=== PATIENT | female | born 2000 | race Caucasian/White ===

== ENCOUNTER 2020-02-08 19:12 | Emergency (ER) | payer OTHER ==
[~2020-02-08] VITALS: Ht 160 cm; Wt 56.7 kg
[~2020-02-08 19:12] MED LIST: ACET325 PO; ALBU90OI INH; AMOX50SU PO; BENADRYL25 MG PO; CODGUAEL PO; IBUP800 PO; Macrobid 100 M100 MG PO; Pepcid40 MG PO; Roxicodone5 MG PO
[2020-02-08] MEDS ORDERED: PRED20 PO (21:34)
== END 2020-02-08 21:56 | disposition home or self-care (01) ==
LOC: ER 19:12
DX: L24.3 Irritant contact dermatitis due to cosmetics (principal); T49.8X1A Poisoning by other topical agents, accidental (unintentional), initial encounter
CPT/HCPCS: 99283; J1100

== ENCOUNTER 2021-07-19 09:53 | Emergency (ER) | payer OTHER ==
[~2021-07-19] VITALS: Ht 162.6 cm; Wt 65.8 kg
[~2021-07-19 09:53] MED LIST changes: +PRED20 PO
[2021-07-19 10:26] LABS: Source, Urine Clean Catch
[2021-07-19 10:29] LABS: Appearance, Urine Clear (Clear); Bilirubin, Urine Neg (Neg); Blood, Urine 3+ (Neg); Color, Urine Yellow (P-Yellow); Glucose Qualitative, Urine Neg (Neg); Ketones, Urine Neg (Neg); Leukocyte Esterase, Urine 2+ (Neg); Nitrite, Urine Neg (Neg); Protein, Urine 1+ (Neg); Specific Gravity, Urine 1.015 (1.003-1.022); Urobilinogen, Urine NORM (Normal)
[2021-07-19] MEDS ORDERED: HYDHCL25 PO (10:47)
[2021-07-19 10:53] LABS: BASOPHILS ABSOLUTE AUTO 0.02 K/mm3 (0.00-0.23); BASOPHILS PERCENT AUTO 0 % (0-2); EOSINOPHILS ABSOLUTE AUTO 0.03 K/mm3 (0.00-0.68); EOSINOPHILS PERCENT AUTO 0 % (0-6); Hematocrit 33.8 % (33.0-51.0); Hemoglobin 11.7 g/dL (11.5-16.0); IMMATURE GRAN ABSOLUTE AUTO 0.01 K/mm3 (0.00-0.10); IMMATURE GRAN PERCENT AUTO 0 % (0-1); LYMPHOCYTES ABSOLUTE AUTO 0.78 K/mm3 (0.84-5.20); LYMPHOCYTES PERCENT AUTO 9 % (21-46); MONOCYTES ABSOLUTE AUTO 1.43 K/mm3 (0.16-1.47); MONOCYTES PERCENT AUTO 17 % (4-13); Mean Corpuscular HGB 30.7 pg (26.0-34.0); Mean Corpuscular HGB Conc 34.6 g/dL (31.5-36.5); Mean Corpuscular Volume 89 fL (80-100); Mean Platelet Volume 10.1 fL (9.1-12.4); NEUTROPHILS ABSOLUTE AUTO 6.19 K/mm3 (1.96-9.15); NEUTROPHILS PERCENT AUTO 73 % (41-73); Platelet Count 219 K/mm3 (150-400); RDW Coefficient Variation 12.1 % (11.7-14.2); RDW Standard Deviation 38.9 fL (35.1-46.3); Red Blood Cell Count 3.81 M/mm3 (3.80-5.20); White Blood Cell Count 8.46 K/mm3 (4.00-11.30)
[2021-07-19 11:11] LABS: Anion Gap 5 mmol/L (6-16); Blood Urea Nitrogen 11 mg/dL (8-24); Bun/Creatinine Ratio 18.9 (12.0-20.0); CO2, Blood 26 mmol/L (21-32); Calcium, Blood 8.6 mg/dL (8.5-10.1); Chloride, Blood 109 mmol/L (98-108); Creatinine, Blood 0.58 mg/dL (0.40-1.00); Glomerular Filtration Rate >60 (60-); Glucose, Blood 114 mg/dL (70-99); Potassium, Blood 3.6 mmol/L (3.5-5.5); Sodium, Blood 140 mmol/L (136-145)
[2021-07-19 11:28] LABS: Bacteria Many /hpf; Squamous Epithelial Cells Mod /hpf (Few)
[2021-07-19 11:29] LABS: Amorphous Light (0-Heavy); Mucus Mod (0-Heavy)
[2021-07-19] MEDS ORDERED: CEFD300 PO (12:32)
== END 2021-07-19 12:47 | disposition home or self-care (01) ==
LOC: ER 09:53
PROVIDERS: Emergency Medicine
DX: N39.0 Urinary tract infection, site not specified (principal); F17.200 Nicotine dependence, unspecified, uncomplicated; Z91.013 Allergy to seafood
CPT/HCPCS: 36415; 80048; 81001; 81025; 85025; 87077; 87086; 87186; 96374; 96375; 99284-25; A9270; J1885; J2405

== ENCOUNTER 2021-09-08 11:05 | Emergency (ER) | payer OTHER ==
[~2021-09-08] VITALS: Ht 162.6 cm; Wt 65.8 kg
[~2021-09-08 11:05] MED LIST changes: +CEFD300 PO; +HYDHCL25 PO
[2021-09-08 12:29] LABS: Source, Urine Clean Catch
[2021-09-08 12:45] LABS: Appearance, Urine Clear (Clear); Bilirubin, Urine Neg (Neg); Blood, Urine 5+ (Neg); Color, Urine Yellow (P-Yellow); Glucose Qualitative, Urine Neg (Neg); Ketones, Urine Neg (Neg); Leukocyte Esterase, Urine 1+ (Neg); Nitrite, Urine Neg (Neg); Protein, Urine 1+ (Neg); Specific Gravity, Urine 1.015 (1.003-1.022); Urobilinogen, Urine NORM (Normal)
[2021-09-08 13:02] LABS: Amorphous Light (0-Heavy); Bacteria Mod /hpf; Squamous Epithelial Cells Mod /hpf (Few)
[2021-09-08 13:14] LABS: BASOPHILS ABSOLUTE AUTO 0.04 K/mm3 (0.00-0.23); BASOPHILS PERCENT AUTO 1 % (0-2); EOSINOPHILS ABSOLUTE AUTO 0.08 K/mm3 (0.00-0.68); EOSINOPHILS PERCENT AUTO 1 % (0-6); Hematocrit 38.7 % (33.0-51.0); IMMATURE GRAN ABSOLUTE AUTO 0.02 K/mm3 (0.00-0.10); IMMATURE GRAN PERCENT AUTO 0 % (0-1); LYMPHOCYTES ABSOLUTE AUTO 1.83 K/mm3 (0.84-5.20); LYMPHOCYTES PERCENT AUTO 25 % (21-46); MONOCYTES ABSOLUTE AUTO 0.76 K/mm3 (0.16-1.47); MONOCYTES PERCENT AUTO 10 % (4-13); Mean Corpuscular HGB 30.4 pg (26.0-34.0); Mean Corpuscular HGB Conc 33.6 g/dL (31.5-36.5); Mean Corpuscular Volume 91 fL (80-100); Mean Platelet Volume 10.1 fL (9.1-12.4); NEUTROPHILS ABSOLUTE AUTO 4.56 K/mm3 (1.96-9.15); NEUTROPHILS PERCENT AUTO 63 % (41-73); Platelet Count 316 K/mm3 (150-400); RDW Coefficient Variation 13.2 % (11.7-14.2); RDW Standard Deviation 43.8 fL (35.1-46.3); Red Blood Cell Count 4.27 M/mm3 (3.80-5.20); White Blood Cell Count 7.29 K/mm3 (4.00-11.30)
[2021-09-08] MEDS ORDERED: CEPH500 PO (13:38)
[2021-09-08 14:08] LABS: Alanine Aminotransfer (ALT/SGP 31 U/L (12-78); Albumin, Blood 3.8 g/dL (3.4-5.0); Albumin/Globulin Ratio 1.2 (0.8-1.8); Alk Phos 60 U/L (50-136); Anion Gap 6 mmol/L (6-16); Aspartate Aminotrans (AST/SGOT 22 U/L (12-37); Beta HCG, Quantitative, Serum 21710 mIU/mL (0-3); Bilirubin, Total 0.6 mg/dL (0.1-1.0); Blood Urea Nitrogen 9 mg/dL (8-24); Bun/Creatinine Ratio 15.6 (12.0-20.0); CO2, Blood 26 mmol/L (21-32); Calcium, Blood 9.1 mg/dL (8.5-10.1); Chloride, Blood 106 mmol/L (98-108); Creatinine, Blood 0.58 mg/dL (0.40-1.00); Globulin, Blood 3.3 g/dL (2.2-4.0); Glomerular Filtration Rate >60 (60-); Glucose, Blood 76 mg/dL (70-99); Potassium, Blood 4.2 mmol/L (3.5-5.5); Sodium, Blood 138 mmol/L (136-145); Total Protein, Blood 7.1 g/dL (6.4-8.2)
== END 2021-09-08 13:46 | disposition home or self-care (01) ==
LOC: ER 11:05
PROVIDERS: Physician Assistant
DX: O23.41 Unspecified infection of urinary tract in pregnancy, first trimester (principal); O20.9 Hemorrhage in early pregnancy, unspecified; N39.0 Urinary tract infection, site not specified; Z91.013 Allergy to seafood; Z79.899 Other long term (current) drug therapy; Z3A.01 Less than 8 weeks gestation of pregnancy
CPT/HCPCS: 76801; 76817; 80053; 81001; 84702; 85025; 86900; 86901; 87086; 99284-25

== ENCOUNTER 2022-05-08 00:15 | Inpatient (IN) | payer OTHER ==
[~2022-05-08] VITALS: Ht 165.1 cm; Wt 87.9 kg
[~2022-05-08 00:15] MED LIST changes: +CEPH500 PO
[2022-05-08] MEDS ORDERED: PRENATAL TABLE1 EAC2 PO (00:45)
[2022-05-08 01:16] LABS: BASOPHILS ABSOLUTE AUTO 0.02 K/mm3 (0.00-0.23); BASOPHILS PERCENT AUTO 0 % (0-2); EOSINOPHILS PERCENT AUTO 1 % (0-6); Hematocrit 31.6 % (33.0-51.0); Hemoglobin 10.7 g/dL (11.5-16.0); IMMATURE GRAN ABSOLUTE AUTO 0.03 K/mm3 (0.00-0.10); IMMATURE GRAN PERCENT AUTO 0 % (0-1); LYMPHOCYTES ABSOLUTE AUTO 2.09 K/mm3 (0.84-5.20); LYMPHOCYTES PERCENT AUTO 28 % (21-46); MONOCYTES ABSOLUTE AUTO 0.68 K/mm3 (0.16-1.47); MONOCYTES PERCENT AUTO 9 % (4-13); Mean Corpuscular HGB 28.8 pg (26.0-34.0); Mean Corpuscular HGB Conc 33.9 g/dL (31.5-36.5); Mean Corpuscular Volume 85 fL (80-100); NEUTROPHILS PERCENT AUTO 61 % (41-73); Platelet Count 262 K/mm3 (150-400); RDW Coefficient Variation 13.2 % (11.7-14.2); RDW Standard Deviation 40.8 fL (35.1-46.3); Red Blood Cell Count 3.71 M/mm3 (3.80-5.20); White Blood Cell Count 7.52 K/mm3 (4.00-11.30)
[2022-05-10 05:49] LABS: Hematocrit 27.1 % (33.0-51.0); Hemoglobin 9.1 g/dL (11.5-16.0); Mean Corpuscular HGB 29.2 pg (26.0-34.0); Mean Corpuscular HGB Conc 33.6 g/dL (31.5-36.5); Mean Corpuscular Volume 87 fL (80-100); Mean Platelet Volume 12.1 fL (9.1-12.4); Platelet Count 206 K/mm3 (150-400); RDW Coefficient Variation 13.5 % (11.7-14.2); RDW Standard Deviation 42.1 fL (35.1-46.3); Red Blood Cell Count 3.12 M/mm3 (3.80-5.20); White Blood Cell Count 10.05 K/mm3 (4.00-11.30)
--- NOTE | 2022-05-10 13:02 | NUR ---
1300- dcd to home with baby
== END 2022-05-10 12:59 | disposition home or self-care (01) | DRG 807 ==
LOC: OBS 00:15 → BC 00:37
PROVIDERS: ADMIT Advanced Practice Midwife
PROC: 10E0XZZ Delivery of Products of Conception, External Approach (ICD-10-PCS; principal; 2022-05-09)
PROC: 00HU33Z Insertion of Infusion Device into Spinal Canal, Percutaneous Approach (ICD-10-PCS; 2022-05-09)
PROC: 3E0R3BZ Introduction of Anesthetic Agent into Spinal Canal, Percutaneous Approach (ICD-10-PCS; 2022-05-09)
PROC: 0HQ9XZZ Repair Perineum Skin, External Approach (ICD-10-PCS; 2022-05-09)
DX: O48.0 Post-term pregnancy (principal); Z37.0 Single live birth; Z3A.40 40 weeks gestation of pregnancy; Z67.40 Type O blood, Rh positive; O99.03 Anemia complicating the puerperium; D64.89 Other specified anemias; E23.6 Other disorders of pituitary gland; O70.0 First degree perineal laceration during delivery; Z88.8 Allergy status to other drugs, medicaments and biological substances; Z91.013 Allergy to seafood; Z91.040 Latex allergy status
CPT/HCPCS: 36415; 51701; 51702; 59025; 85025; 85027; 86850; 86900; 86901; A9270; J0290; J1885; J2001; J2210; J2405; J2590; J3010; J7120

== ENCOUNTER → 2022-10-24 | Outpatient (CLI) | payer OTHER ==
[~2022-10-24] MED LIST changes: +PRENATAL TABLE1 EAC2 PO
== END | disposition home or self-care (01) ==
LOC: LAB SHORT 10:17
DX: J02.9 Acute pharyngitis, unspecified (principal)
CPT/HCPCS: 87081

== ENCOUNTER 2023-05-31 02:30 | Emergency (ER) | payer OTHER ==
[~2023-05-31] VITALS: Ht 162.6 cm; Wt 72.6 kg
[2023-05-31] MEDS ORDERED: MORP15ER PO (04:50)
[2023-05-31] MEDS ORDERED: ONDA4ODT MM (04:50)
[2023-05-31] MEDS ORDERED: METO10 PO (04:50)
[2023-05-31] MEDS ORDERED: AMOCLA875 PO (04:50)
[2023-05-31 04:55] VITALS: BP 113/71
== END 2023-05-31 05:00 | disposition home or self-care (01) ==
LOC: ER 02:30
DX: K03.81 Cracked tooth (principal); Z88.8 Allergy status to other drugs, medicaments and biological substances; Z91.040 Latex allergy status; Z91.013 Allergy to seafood
CPT/HCPCS: A9270

== ENCOUNTER → 2023-12-24 | Outpatient (CLI) | payer OTHER ==
[~2023-12-24] MED LIST changes: +AMOCLA875 PO; +METO10 PO; +MORP15ER PO; +ONDA4ODT MM
== END | disposition home or self-care (01) ==
LOC: LAB 15:57 → LAB SHORT 15:57
DX: R30.0 Dysuria (principal)
CPT/HCPCS: 87086

== ENCOUNTER 2025-06-18 13:25 | Emergency (ER) | payer OTHER ==
[~2025-06-18] VITALS: Ht 162.6 cm; Wt 68.0 kg
[2025-06-18 14:27] LABS: Source, Urine Clean Catch
[2025-06-18] MEDS ORDERED: LESSINA-28 TAB1 EACH PO (14:27)
[2025-06-18] MEDS ORDERED: ESCI10 PO (14:27)
[2025-06-18] MEDS ORDERED: HYDHCL25 PO (14:28)
[2025-06-18 14:45] LABS: Bilirubin, Urine Neg (Neg); Color, Urine Yellow (P-Yellow); Glucose Qualitative, Urine Neg (Neg); Ketones, Urine Neg (Neg); Leukocyte Esterase, Urine 1+ (Neg); Protein, Urine Neg (Neg); Specific Gravity, Urine 1.005 (1.003-1.022); Urobilinogen, Urine NORM (Normal)
[2025-06-18 14:50] LABS: BASOPHILS ABSOLUTE AUTO 0.04 K/mm3 (0.00-0.23); BASOPHILS PERCENT AUTO 1 % (0-2); EOSINOPHILS ABSOLUTE AUTO 0.12 K/mm3 (0.00-0.68); EOSINOPHILS PERCENT AUTO 2 % (0-6); Hematocrit 39.3 % (33.0-51.0); Hemoglobin 13.0 g/dL (11.5-16.0); IMMATURE GRAN ABSOLUTE AUTO 0.02 K/mm3 (0.00-0.10); IMMATURE GRAN PERCENT AUTO 0 % (0-1); LYMPHOCYTES ABSOLUTE AUTO 1.97 K/mm3 (0.84-5.20); LYMPHOCYTES PERCENT AUTO 26 % (21-46); MONOCYTES ABSOLUTE AUTO 0.45 K/mm3 (0.16-1.47); MONOCYTES PERCENT AUTO 6 % (4-13); Mean Corpuscular HGB Conc 33.1 g/dL (31.5-36.5); Mean Corpuscular Volume 93 fL (80-100); NEUTROPHILS ABSOLUTE AUTO 5.04 K/mm3 (1.96-9.15); NEUTROPHILS PERCENT AUTO 66 % (41-73); NRBC ABSOLUTE 0.00 K/mm3 (0.00-0.02); NRBC Auto 0.0 /100 WBC (0.0-0.2); Platelet Count 259 K/mm3 (150-400); RDW Coefficient Variation 12.4 % (11.7-14.2); RDW Standard Deviation 42.1 fL (35.1-46.3)
[2025-06-18 14:53] LABS: Red Blood Cells, Urine 0-2 /hpf (0-2)
[2025-06-18] MEDS ORDERED: Ketorolac Tromethamine 15mg Vial IV ONE (14:55)
[2025-06-18] MEDS ORDERED: NS 1,000 ML IV SCH (14:55)
[2025-06-18 15:19] LABS: Alanine Aminotransfer (ALT/SGP 31 U/L (12-78); Albumin, Blood 3.9 g/dL (3.4-5.0); Albumin/Globulin Ratio 1.0 (0.8-1.8); Anion Gap 11 mmol/L (3-11); Aspartate Aminotrans (AST/SGOT 25 U/L (12-37); Beta HCG, Quantitative, Serum <1 mIU/mL (0-3); Bilirubin, Total 0.3 mg/dL (0.1-1.0); Blood Urea Nitrogen 7 mg/dL (8-24); CO2, Blood 23 mmol/L (21-32); Calcium, Blood 8.8 mg/dL (8.5-10.1); Chloride, Blood 107 mmol/L (98-108); Creatinine, Blood 0.59 mg/dL (0.40-1.00); Globulin, Blood 3.9 g/dL (2.2-4.0); Glucose, Blood 69 mg/dL (70-99); Potassium, Blood 3.6 mmol/L (3.5-5.5); Sodium, Blood 137 mmol/L (136-145); Total Protein, Blood 7.8 g/dL (6.4-8.2)
[2025-06-18 16:00] VITALS: BP 100/65
== END 2025-06-18 16:48 | disposition home or self-care (01) ==
LOC: ER 13:25
PROVIDERS: Student in an Organized Health Care Education/Training Program
DX: K59.00 Constipation, unspecified (principal); R10.9 Unspecified abdominal pain; R63.5 Abnormal weight gain; R53.83 Other fatigue; G89.29 Other chronic pain
CPT/HCPCS: 74176; 80053; 81001; 83690; 84702; 85025; 87086; 96374; 99284-25; J1885; J7030

== ENCOUNTER 2025-06-21 15:19 | Emergency (ER) | payer OTHER ==
[~2025-06-21] VITALS: Ht 162.6 cm; Wt 65.8 kg
[~2025-06-21 15:19] MED LIST changes: +ESCI10 PO; +LESSINA-28 TAB1 EACH PO
[2025-06-21 16:00] LABS: Source, Urine Clean Catch
[2025-06-21 16:02] LABS: Bilirubin, Urine Neg (Neg); Color, Urine Yellow (P-Yellow); Glucose Qualitative, Urine Neg (Neg); Ketones, Urine Neg (Neg); Leukocyte Esterase, Urine Neg (Neg); Protein, Urine Neg (Neg); Specific Gravity, Urine 1.015 (1.003-1.022); Urobilinogen, Urine NORM (Normal)
[2025-06-21 18:52] VITALS: BP 119/68
== END 2025-06-21 18:53 | disposition home or self-care (01) ==
LOC: ER 15:19
PROVIDERS: Emergency Medicine
DX: N83.292 Other ovarian cyst, left side (principal); R10.9 Unspecified abdominal pain; Z91.040 Latex allergy status; Z91.018 Allergy to other foods; Z91.013 Allergy to seafood; Z79.899 Other long term (current) drug therapy
CPT/HCPCS: 76830; 76856; 81003; 81025; 99284-25